=== PATIENT | male | born 1995 | race Caucasian/White ===

== ENCOUNTER → 2017-09-15 | Outpatient (CLI) | payer BC ==
[2015-11-04 15:30] VITALS: BP 109/54
--- NOTE | 2017-09-15 12:20 | RAD ---
Complete abdominal ultrasound 09/15/2017 Indication: Hepatitis C. Comparison study: None Discussion: Ultrasound evaluation of the abdomen was performed. Static images are submitted to PACS. Visualized portions of the pancreas are unremarkable. Visualized portions of the aorta and IVC are unremarkable. The gallbladder is normal appearance without evidence of wall thickening, stones, or sludge. The portal vein demonstrates flow in normal direction. Common bile duct is nondilated measuring between 3 and 4 mm. The liver is normal in appearance without evidence of focal hepatic lesion. The liver is top normal in size measuring 17 cm longitudinally. No intrahepatic biliary dilatation is seen. The right kidney is normal in appearance measuring 11.5 cm in length. The left kidney is normal appearance measuring 12.2 cm in length. The spleen is mildly enlarged measuring 12.6 cm in length. Impression: 1. Mild splenomegaly 2. Otherwise unremarkable abdominal ultrasound
== END | disposition home or self-care (01) ==
LOC: US 10:55
PROVIDERS: ATTEND Nurse Practitioner Family
DX: B19.20 Unspecified viral hepatitis C without hepatic coma (principal); R16.1 Splenomegaly, not elsewhere classified
CPT/HCPCS: 76700